=== PATIENT | male | born 1995 | race Caucasian/White ===

== ENCOUNTER 2016-12-30 23:02 | Observation (INO) ==
[2016-12-30] MEDS ORDERED: NS 1,000 ML IV ONE (23:29)
[2016-12-30 23:32] LABS: MANUAL DIFF NEEDED? NO
[2016-12-30 23:37] LABS: BASO% 0.2 % (0.0-0.8); EOS# 0.04 X1000 (0.0-0.7); EOS% 0.4 % (0.0-10.0); HEMATOCRIT 40.1 % (42.0-52.0); HEMOGLOBIN 13.5 g/dL (14.0-18.0); IMM GRAN# 0.02 X1000 (0.0-0.04); IMM GRAN% 0.2 % (0.0-0.5); LYMPH# 2.38 X1000 (1.2-3.4); LYMPH% 21.9 % (20.5-51.1); MCH 25.5 PG (27-31); MCHC 33.7 g/dL (33-37); MCV 75.8 FL (81-99); MONO# 0.73 X1000 (0.11-0.59); MONO% 6.7 % (1.7-9.3); MPV 10.7 FL (7.4-10.4); NEUT% 70.6 % (42.2-75.2); PLT 293 X1000 (130-400); RBC 5.29 XMIL (4.7-6.1)
[2016-12-30] MEDS ORDERED: NS 1,000 ML ONE (23:40)
[2016-12-31 00:06] LABS: AGAP 18; ALBUMIN 4.9 g/dL (3.5-5.0); ALKALINE PHOSPHATASE 42 U/L (32-122); BUN 8 mg/dL (8-22); CALCIUM 9.5 mg/dL (8.8-10.2); CHLORIDE 103 mmol/L (98-107); CK PROFILE 147 U/L (24-204); COSMO 283; GOT 22 U/L (10-34); GPT 16 U/L (10-44); MAGNESIUM 2.1 mg/dL (1.5-2.7); POTASSIUM 3.6 mmol/L (3.5-5.1); SODIUM 142 mmol/L (136-145); TCO2 21 mmol/L (25-35)
[2016-12-31 00:11] LABS: INR 1.09 (0.86-1.15); PROTIME 14.4 Seconds (12.1-15.5)
[2016-12-31 00:12] LABS: PTT PL 28.5 Seconds (22.6-43.9)
[2016-12-31 00:20] LABS: URINE CULTURE PL NEEDED? NO
[2016-12-31 00:37] LABS: FREE T4 1.49 ng/dL (0.93-1.70)
--- NOTE | 2016-12-31 01:01 | EKG Report ---
Test Performed on : 12/31/2016 00:25:47 AM Test Reason : CHEST PAIN Blood Pressure : / mmHG Vent. Rate : 105 BPM Atrial Rate : 105 BPM P-R Int : 138 ms QRS Dur : 098 ms QT Int : 342 ms P-R-T Axes : 063 057 063 degrees QTc Int : 452 ms Sinus tachycardia. Otherwise normal ECG No previous ECGs available Unconfirmed Result
[2016-12-31 01:12] LABS: BILIRUBIN URINE NEGATIVE (NEGATIVE); BLOOD URINE NEGATIVE (NEGATIVE); CLARITY CLEAR (CLEAR); COLOR YELLOW; GLUCOSE URINE NEGATIVE (NEGATIVE); LEUKOCYTES URINE NEGATIVE (NEGATIVE); NITRITE URINE NEGATIVE (NEGATIVE); PROTEIN URINE NEGATIVE (NEGATIVE); UROBILINOGEN URINE NORMAL
[2016-12-31 01:13] LABS: URINE EPITHELIAL CELLS <10 /HPF (<10); URINE RBC <10 /HPF (<10); URINE SOURCE CATH; URINE WBC <10 /HPF (<10)
[2016-12-31 01:23] LABS: UR AMPHETAMINES QUAL NONE DETECTED (NONE DETECT); UR BARBITUATES QUAL NONE DETECTED (NONE DETECT); UR BENZODIAZEPIN QUAL PRESUMPTIVE POSITIVE (NONE DETECT); UR CANNABINOIDS QUAL NONE DETECTED (NONE DETECT); UR COCAINE QUAL NONE DETECTED (NONE DETECT); UR MDMA QUAL NONE DETECTED (NONE DETECT); UR METHADONE QUAL NONE DETECTED (NONE DETECT); UR METHAMPHETAMINE QUAL NONE DETECTED (NONE DETECT); UR OPIATES QUAL NONE DETECTED (NONE DETECT); UR OXYCODONE QUAL NONE DETECTED (NONE DETECT); UR PCP QUAL NONE DETECTED (NONE DETECT); UR TCA QUAL NONE DETECTED (NONE DETECT)
[2016-12-31] MEDS ORDERED: NS 1,000 ML IV ONE ×2 (01:29→08:52)
--- NOTE | 2016-12-31 02:45 | Diag Imaging Result Document ---
PROCEDURE NAME: HEAD W/O CONTRAST - 12/31/2016 STUDY: CT brain without. No parenchymal hemorrhage. No epidural or subdural hematoma. No subarachnoid hemorrhage. No mass identified on this noncontrasted exam. No hydrocephalus. No sinus opacification. IMPRESSION: No hemorrhage. Negative brain CT without contrast. A preliminary report was given at 1:11 a.m.
--- NOTE | 2016-12-31 06:48 | Diag Imaging Result Document ---
PROCEDURE NAME: CHEST-2 VIEWS - 12/31/2016 FRONTAL AND LATERAL CHEST, TWO VIEWS: FINDINGS: The lungs are well expanded. The heart is not enlarged. The vessels are not distended. No pneumonia. No pleural effusions. No free air beneath the diaphragm. IMPRESSION: No acute abnormality.
[2016-12-31 07:36] VITALS: BP 126/67
[2016-12-31 08:31] LABS: MANUAL DIFF NEEDED? NO
[2016-12-31 08:36] LABS: BASO% 0.1 % (0.0-0.8); EOS# 0.06 X1000 (0.0-0.7); EOS% 0.8 % (0.0-10.0); HEMATOCRIT 36.3 % (42.0-52.0); HEMOGLOBIN 11.8 g/dL (14.0-18.0); IMM GRAN# 0.01 X1000 (0.0-0.04); IMM GRAN% 0.1 % (0.0-0.5); LYMPH# 2.19 X1000 (1.2-3.4); MCH 25.2 PG (27-31); MCHC 32.5 g/dL (33-37); MCV 77.6 FL (81-99); MONO# 0.68 X1000 (0.11-0.59); MONO% 9.6 % (1.7-9.3); MPV 10.6 FL (7.4-10.4); NEUT% 58.4 % (42.2-75.2); PLT 225 X1000 (130-400); RBC 4.68 XMIL (4.7-6.1)
[2016-12-31 08:59] LABS: AGAP 10; ALBUMIN 4.2 g/dL (3.5-5.0); ALKALINE PHOSPHATASE 36 U/L (32-122); BUN 10 mg/dL (8-22); CALCIUM 8.7 mg/dL (8.8-10.2); CHLORIDE 106 mmol/L (98-107); COSMO 278; GOT 17 U/L (10-34); GPT 12 U/L (10-44); POTASSIUM 4.1 mmol/L (3.5-5.1); SODIUM 140 mmol/L (136-145); TCO2 24 mmol/L (25-35); TOTAL PROTEIN 6.6 g/dL (6.3-8.3)
--- NOTE | 2016-12-31 10:58 | HISTORY AND PHYSICAL ---
CHIEF COMPLAINT: Drug overdose. HISTORY OF PRESENTING ILLNESS: This is a 21-year-old male, who presented to [facility] ER with a complaint of a possible overdose. Apparently, he had bought six 1 mg tablets of Klonopin and two 100 mg extended-release BuSpar tablets and drank a large amount of alcohol. He states that he was "partying" and partied too much, had also smoked marijuana. His workup showed a urine drug screen positive for the benzodiazepines. Serum alcohol level on arrival was 77. A CT of the head showed no hemorrhage. Negative brain CT. Chest x-ray showed no acute abnormality. EKG showed sinus tachycardia at 105, and he was admitted to the intensive care unit for further evaluation and treatment. PAST MEDICAL HISTORY: None. PAST SURGICAL HISTORY: Left finger tendon replacement. FAMILY HISTORY: Noncontributory. SOCIAL HISTORY: Currently lives with family. States he smokes 3 or 4 cigarettes a week. According to ER records, he drinks 11-15 drinks daily. Today, he states that he does not drink heavily every day but drinks at least 2-3 beers a day and uses marijuana, benzodiazepines and barbiturates. ALLERGIES: He has no known drug allergies. HOME MEDICATIONS: He does not take any medications at home on a routine basis. DIAGNOSTIC DATA: Showed a white blood cell count of 10.89, hemoglobin 13.5, hematocrit 40.1, platelets 293,000. PT and INR 14.4 and 1.09 with a D-dimer of less than 0.22. Sodium of 142, potassium 3.6, chloride 103, CO2 21, BUN of 8, creatinine 0.9, glucose 120, magnesium 2.1, total bilirubin of 1.20. AST is 22 with an ALT of 16. Alkaline phosphatase of 42, creatine kinase of 147. Troponin less than 0.010. ProBNP of 8. TSH of 1.15, free T4 of 1.49. Urinalysis was negative. Urine drug screen was presumptive positive for benzodiazepines with a serum alcohol level of 77. CT of the head was negative. Chest x-ray was no acute abnormality. EKG with sinus tachycardia at 105. REVIEW OF SYSTEMS: He denies any fever, chills, blurred vision, dizziness, chest pain, coughing, shortness of breath. He denies any constipation, diarrhea, abdominal pain, or burning or hurting with urination. PHYSICAL EXAMINATION: On arrival, he had a temperature of 98.2 degrees, pulse 129, respirations 20, blood pressure 108/70, saturating 98% on room air. Currently, he has a temperature of 97.8 degrees, pulse 75, respirations 14, blood pressure 126/67, saturating 100% on 2 L via nasal cannula. GENERAL: This is a 21-year-old male, who is lying in the bed, and answers questions appropriately. HEENT: Normocephalic and atraumatic. Pupils are equal, round, reactive to light. Extraocular movements are intact. Oropharynx and nares are clear. NECK: Supple. LUNGS: Clear to auscultation bilaterally with equal lung expansion and chest wall movement. HEART: With regular rate and rhythm. No murmurs, rubs, or gallops. ABDOMEN: Soft and nontender nondistended. Bowel sounds are present x4 quadrants. EXTREMITIES: There is no clubbing, cyanosis, or edema. NEUROLOGICAL: The cranial nerves 2-12 are grossly intact. ASSESSMENT: 1. Drug overdose. 2. Ethanol abuse. 3. Tobacco abuse. PLAN: He was admitted to the intensive care unit. Placed on telemetry. Regular diet. Normal saline at 75 mL an hour. We will have Social Work provide him with outpatient treatment facilities, as patient states he is interested in receiving treatment on an outpatient basis at this time. Dictated by [place] for Edy Woodall MD cc: [place] MD
--- NOTE | 2016-12-31 16:02 | DISCHARGE SUMMARY ---
ADMISSION DATE: 12/30/2016 DISCHARGE DATE: 12/31/2016 ADMISSION DIAGNOSES: 1. Drug overdose. 2. Ethanol abuse. 3. Tobacco abuse. DISCHARGE DIAGNOSES: 1. Drug overdose improved. 2. Ethanol abuse. 3. Drug abuse. 4. Tobacco abuse. SUMMARY OF FINDINGS: This is a 21-year-old, male who presented to [facility] ER with complaints of a possible overdose stating that he had bought 6, 1 mg tablets of Klonopin and 2, 100 mg extended release BuSpar tablets and drank a large amount of alcohol. He states that he was "partying and partied too much," and had smoked marijuana. His urine drug screen was positive for benzodiazepines. No marijuana was noted so it is questionable if it was synthetic. His serum alcohol level was 77 when he arrived. He was initially admitted to the Intensive Care Unit and monitored. This a.m. he is alert, awake and feeling much better. He is interested in outpatient drug and alcohol treatment. Social Work provided him with all of the drug and alcohol treatment facilities outpatient with phone numbers. It is felt that he can safely be discharged home. DISCHARGE MEDICATIONS: None. DISCHARGE TIME: 35 minutes. Dictated by [place] for Edy Woodall MD cc: [place] [place] MD
--- NOTE | 2017-01-28 00:41 | ED EKG INTERP ---
This chart was entered by Jaclyn Gottlieb Scribe, acting as scribe for Enrique Ariza DO. EKG Interpretation - EKG Time of EKG reading by physician:: 00:25 EKG Read and Signed by:: Enrique Ariza EKG Interpretation (*Must complete 3 of following elements*): Normal Rate: 105 Rhythm: [place]: normal QRS: normal [place] Interval: normal This chart was documented by the indicated scribe, (Jaclyn Gottlieb Scribe) and accurately reflects the services I performed and decisions made by , Enrique Arzia DO, as attested by the provider's signature.
--- NOTE | 2017-01-28 00:42 | PROVIDER DOCUMENTATION ---
This chart was entered by Jaclyn Gottlieb Scribe, acting as scribe for Enrique Aguilar DO. [id number] Abuse/Overdose - General Chief Complaint: Overdose Stated Complaint: INGESTED PILLS/INTOXIATED Time Seen by Provider: 12/30/16 23:27 Source: patient Allergies/Adverse Reactions: Allergies Allergy/AdvReac Type Severity Reaction Status Date / Time No Known Allergies Allergy Verified 12/30/16 23:15 Home Medications: Home Medication List Medication Instructions Recorded Confirmed Last Taken Type NK [No Home Medications] 12/30/16 12/30/16 Unknown History - History of Present Illness-Drug/Alcohol Nature of Presenting Problem: PT IS A 21YOM PRESENTING TO THE ED C/O POSSIBLE OD. PT STATES THAT HE BOUGHT 6 1MG KLONOPIN AND 2 100MG EXTENDED RELEASE BUSPAR WITH A LARGE AMOUNT OF ETOH. PT IS A&OX3 AT THIS TIME. THERE IS A STRONG ODOR OF ETOH IN THE ROOM AND PT STATES HE WAS "PARTYING AND PARTIED TOO MUCH, HE ALSO WAS SMOKING MARIJUANA, PT DENIES ANY OTHER OPIATE BASED DRUGS AT THIS TIME". NO OTHER COMPLAINTS NOTED AT THIS TIME This episode of drinking or use began:: gradual Severity: reports: moderate, severe Situational problems related to:: reports: N/A Psychiatric Complaints: reports: altered mental status, depressed. denies: hallucinating, homicidal thoughts, insomnia, suicidal ideation Associated Symptoms: reports: anxiety, weakness. denies: chest pain, sinus congestion/drainage, shortness of breath, swelling/mass in abdomen Any injuries associated with this episode of intoxication?: No Similar Symptoms Previously?: No Recently seen or treated by another doctor?: No - Substance Abuse Substance Use: reports: alcohol, marijuana, benzodiazepines, barbituates - Alcohol Abuse Last Drink?: 23:56 Type and amount of last drink?: BEER AND HARD LIQUOR Usually drinks:: daily Other alcohols?: reports: N/A - Detox/Hospitalizations Previous detox/rehab admissions?: No - Overdose Intentional drug overdose?: No List substance(s) ingested.: KLONOPIN, BUSPAR, MARIJUANA, AND ETOH Review of Systems - Adult - REVIEW OF SYSTEMS - ADULT Constitutional: reports: no symptoms reported Eyes: reports: no symptoms reported Ears, Nose, Mouth & Throat: reports: no symptoms reported Cardiovascular: reports: no symptoms reported Respiratory: reports: no symptoms reported Gastrointestinal: reports: no symptoms reported Genitourinary: reports: no symptoms reported Musculoskeletal: reports: no symptoms reported Integumentary: reports: no symptoms reported Neurological: reports: no symptoms reported Psychiatric: reports: see HPI, alcohol/drug dependence, emotional problems. denies: suicidal thoughts Endocrine: reports: no symptoms reported Hematologic/Lymphatic: reports: no symptoms reported Allergic/Immunologic: reports: no symptoms reported All Other Systems: Reviewed and Negative Past History - Adult - PAST MEDICAL HISTORY-ADULT Review of Records: reports: Old Records Reviewed, Nursing Assessment Review, Medications Reviewed, Social history reviewed & non-contributory. Major Childhood Illnesses: reports: denies history Cardiovascular: reports: denies history Respiratory: reports: denies history Gastrointestinal: reports: denies history Obstetrical/Gynecological: reports: denies history Genitourinary: reports: denies history Musculoskeletal: reports: denies history Neurological: reports: denies history Endocrine/Immune: reports: denies history Other Conditions: reports: denies history - IMMUNIZATION STATUS Childhood Immunizations: See Nurse Assessment Flu Vaccine: See Nurse Assessment - FAMILY HISTORY Family History: reviewed, not pertinent - SOCIAL HISTORY Smoking: cigarettes, greater than 1 pack/day Provider spent 3-5 mins advising pt. on dangers of tobacco.: Discussed manners to quit use, and f/u contacts for add'l counseling. Substance Use: alcohol, marijuana, benzodiazepines, barbituates Alcohol Use Frequency: every day Number of drinks per typical drinking period:: 11-15 drinks Living Situation: family Physical Exam-General - PHYSICAL EXAM-ADULT Initial Vital Signs Reviewed: Yes - CONSTITUTIONAL General Appearance: appears well, alert, moderate distress, anxious, lethargic - EYES Eyes: PERRL/EOMI, pink conjunctivae, FUN - HEAD, EARS, NOSE, MOUTH & THROAT HENMT: normocephalic/atraumatic, moist mucous membranes, normal ENT inspection, TMs normal, pharynx normal - NECK Neck: non-tender, full range of motion, supple, normal inspection - RESPIRATORY Respiratory: chest non-tender, lungs clear, normal breath sounds, no pleuratic chest pain, no respiratory distress, no accessory muscle use - CARDIOVASCULAR Cardiovascular: normal peripheral pulses, no edema, no gallop, no JVD, no murmur , tachycardia. negative: regular rate, rhythm - GASTROINTESTINAL (ABDOMEN) Abdominal Exam: normal bowel sounds, non tender, soft, no organomegaly, no pulsatile mass - LYMPHATIC Lymphatic: no adenopathy - MUSCULOSKELETAL Back Exam: normal inspection, no CVA tenderness, no vertebral tenderness Extremity: normal range of motion, non-tender, normal gait, normal inspection, no pedal edema, no calf tenderness, normal capillary refill, pelvis stable - SKIN Integumentary: normal color, normal turgor, warm/dry - NEUROLOGIC Neurologic: assistant program director II-XII nml as tested, focal weakness, motor weakness, sensory deficit. negative: grossly normal - PSYCHIATRIC Psych/Mental Status: normal thought content, oriented x 3, anxious, disheveled, tearful. negative: normal mood/affect, normal thought process Progress - PLAN OF CARE/RESULTS Progress/Plan/Lab Results: Orders Category Date Time Status Admit - [facility] Routine AdmDCTranf 12/31/16 01:29 Ordered Activity - Strict Bedrest ORDERED Care 12/31/16 01:29 Active Call Admitting on Arrival AT ADMISSION Care 12/31/16 01:29 Completed Cardiac Monitoring DIRECTED Care 12/30/16 23:28 Active [place] Cath Insertion ORDERED Care 12/31/16 00:22 Completed Neurological Check ORDERED Care 12/31/16 01:29 Active Saline Loc NOW Care 12/30/16 23:28 Active Vital Signs Order ORDERED Care 12/31/16 01:29 Active CHEST-2 VIEWS [RAD] Stat Exams 12/31/16 00:00 Completed HEAD W/O CONTRAST [CT] Stat Exams 12/31/16 00:00 Completed ALCOHOL BLOOD Stat Lab 12/30/16 23:27 Completed CBC WITH ELECTRONIC DIFF [HEME] Stat Lab 12/30/16 23:27 Completed CK PROFILE [SP CHEM] Stat Lab 12/30/16 23:27 Completed COMPREHENSIVE METABOLIC PANEL [CHEM] Stat Lab 12/30/16 23:[address] D-D[address]ER [address] [COAG] Stat Lab 12/30/16 23:27 Completed FREE T4 Stat Lab 12/30/16 23:27 Completed MAGNESIUM [CHEM] Stat Lab 12/30/16 23:27 Completed PRO B-NATRIURETIC PEPTIDE Stat Lab 12/30/16 23:27 Completed [address]IME WITH INR PL [COAG] Stat Lab 12/30/16 23:[address] [COAG] Stat Lab 12/30/16 23:27 Completed TROPONIN T Stat Lab 12/30/16 23:27 Completed TSH Stat Lab 12/30/16 23:[address] W/POSS RFLX CULT [URINALYSIS] Stat Lab 12/31/16 00:13 Completed URINE DRUG SCREEN PL Stat Lab 12/31/16 00:13 Completed VITAMIN B12 Stat Lab 12/30/16 23:27 Completed 0.9% Sodium Chloride Inj [Ns] 1,000 ml Med 12/30/16 23:40 Discontinued .ROUTE As Directed 0.9% Sodium Chloride Inj [Ns] 1,000 ml Med 12/31/16 01:29 Discontinued IV 125 mls/hr 0.9% Sodium Chloride Inj [Ns] 1,000 ml Med 12/30/16 23:29 Discontinued IV 999 mls/hr Telemetry [OM.EQ] Routine Oth 12/31/16 01:29 Active EKG [EKG] Stat Ther 12/30/16 23:28 Draft Transfer/Admit Order [TRANSFER] Routine Transfer 12/31/16 01:30 Completed Result Diagrams: 12/31/16 08:05 12/31/16 08:05 - CT/MRI 1 CT Study: Head (NAD) Departure - Departure Time of Disposition Decision: 10:34 DIAGNOSIS: Overdose Qualifiers: Encounter type: initial encounter Injury intent: undetermined intent Qualified Code(s): T50.904A - Poisoning by unspecified drugs, medicaments and biological substances, undetermined, initial encounter Disposition: ADMITTED INPATIENT 09 Certified Medical Emergency: Emergent Condition: Serious - Critical Care Note This patient required my direct & personal management of CC.: Yes Total Time (mins): 45 (DR AGUILAR) Critical Care Statement: This patient required my direct personal management to treat or rule out processes, the absence of which, could potentiallly result in sudden, clinically significant life or limb threatening deterioration. This chart was documented by the indicated scribe, (Jaclyn Gottlieb Scribe) and accurately reflects the services I performed and decisions made by , Enrique Aguilar DO, as attested by the provider's signature.
== END 2016-12-31 10:58 | disposition home or self-care (01) ==
LOC: P.ED 23:02 → P.ICU 12-31 02:29 → INTOOBSV 12-31 02:29 → SUATTDRO 12-31 02:29
PROVIDERS: ATTEND Internal Medicine